=== PATIENT | male | born 1950 | race Caucasian/White ===

== ENCOUNTER 2017-01-09 13:21 | Outpatient (CLI) | payer MEDICARE, OTHER | END 2017-01-09 13:22 | disposition home or self-care (01) | DX: G47.33 Obstructive sleep apnea (adult) (pediatric) (principal) | CPT/HCPCS: 99214; G0463 ==

== ENCOUNTER 2017-02-23 09:14 | Outpatient (CLI) | payer MEDICARE, OTHER | END 2017-02-23 09:15 | disposition home or self-care (01) | LOC: SC 09:14 | PROVIDERS: ATTEND Nurse Practitioner Family | DX: G47.33 Obstructive sleep apnea (adult) (pediatric) (principal) | CPT/HCPCS: 99214; G0463; 99212 ==

== ENCOUNTER 2017-04-17 17:58 | Observation (INO) | payer MEDICARE, OTHER ==
[2017-04-17] MEDS ORDERED: ASPIRIN CHEW 81 MG TABLET PO STA (18:30)
--- NOTE | 2017-04-17 18:33 | ED Physician Documentation ---
PD HPI CHEST PAIN - Stated complaint Stated Complaint: CHEST PX/DIZZY - Chief complaint Chief Complaint: Cardiac - History obtained from History obtained from: Patient, Family (mom) - Additional information Additional information: 66yo with H/O afib and peripheral vertigo with 2 days vertigo, worse with head motion. Now 1 day intermittent Left chest pinching radiating to Left axilla and left neck. +dyspnea, +nausea. No leg pain or pedal edema. Vertigo previsouly treated successfully with Al. Review of Systems Ten Systems: 10 systems reviewed and negative Constitutional: denies: Fever, Chills Ears: denies: Loss of hearing, Ear pain Nose: denies: Rhinorrhea / runny nose, Congestion Cardiac: reports: Chest pain / pressure. denies: Palpitations, Pedal edema, Calf pain Respiratory: reports: Dyspnea. denies: Cough, Hemoptysis, Wheezing PD PAST MEDICAL HISTORY - Past Medical History Past Medical History: Yes Cardiovascular: ID, Atrial fibrillation, Other Respiratory: COPD, Sleep apnea, CPAP use Endocrine/Autoimmune: None GI: C.difficile : Benign prostate hypertrophy, Other HEENT: Other Psych: Depression Musculoskeletal: Osteoarthritis, Chronic back pain Derm: Other - Past Surgical History Past Surgical History: Yes General: Colonoscopy Ortho: Arthroscopic surgery, Other HEENT: Cataracts - Present Medications Home Medications: Ambulatory Orders Medication Instructions Recorded Confirmed Albuterol Sulfate [Ventolin Hfa] 2 puffs IH Q4H PRN 04/12/13 04/17/17 Fluticasone/Salmeterol [Advair 1 puffs IH BID 04/12/13 04/17/17 250-50 Diskus] Furosemide [Lasix] 40 mg PO DAILY 04/12/13 04/17/17 Gabapentin 800 mg PO TID 04/12/13 04/17/17 Tamsulosin [Flomax] 0.4 mg PO DAILY 04/12/13 04/17/17 Nitroglycerin [Nitrostat] 0.4 mg SL DAILY PRN 08/20/13 04/17/17 Fluticasone [Flonase] 1 spray IN BID 03/25/15 04/17/17 Omeprazole [Prilosec] 20 mg PO BID 03/25/15 04/17/17 Acetaminophen 650 mg PO TID 05/24/16 04/17/17 Aspirin [Aspirin EC] 325 mg PO DAILY 05/24/16 04/17/17 Digoxin 125 mcg PO DAILY 05/24/16 05/24/16 Montelukast [Singulair] 10 mg PO DAILY 05/24/16 04/17/17 Doxycycline Hyclate 0 mg DAILY 04/17/17 04/17/17 - Allergies Allergies/Adverse Reactions: Allergies Allergy/AdvReac Type Severity Reaction Status Date / Time epinephrine Allergy Severe chest pain Verified 04/17/17 18:06 Penicillins Allergy Severe Hives Verified 04/17/17 18:06 tramadol Allergy Severe Dizziness Verified 04/17/17 18:06 hydrocodone bitartrate * Allergy Intermediate Rash Verified 04/17/17 18:06 [From Vicodin] moxifloxacin HCl * Allergy Unknown Rash Verified 04/17/17 18:06 [From Avelox] propoxyphene napsylate * Allergy Unknown Rash Verified 04/17/17 18:06 [From Darvocet-N 100] minocycline Allergy Rash Verified 04/17/17 18:08 amlodipine besylate * AdvReac Intermediate Rash Verified 04/17/17 18:06 [From Norvasc] clarithromycin [From Biaxin] AdvReac Intermediate Rash Verified 04/17/17 18:06 Sulfa (Sulfonamide AdvReac Intermediate Hives Verified 04/17/17 18:06 Antibiotics) lisinopril AdvReac Mild affected Verified 04/17/17 18:06 kidney function dye contrast Allergy Severe Anaphylaxis Uncoded 04/28/16 14:52 iv dye Allergy Anaphylaxis Uncoded 04/17/17 18:08 perfumes/smoke AdvReac Respiratory Uncoded 04/17/17 18:08 - Social History Does the pt smoke?: No Smoking Status: Never smoker Does the pt drink ETOH?: Yes Does the pt have substance abuse?: No - Family History Family history: reports: Non contributory - Immunizations Immunizations are current?: Yes PD ED PE NORMAL - Vitals Vital signs reviewed: Yes - General General: Alert and oriented X 3, No acute distress - HEENT HEENT: PERRL, EOMI, Other (+ left nystagmus) - Neck Neck: Supple, no meningeal sign, No bony TTP - Cardiac Cardiac: RRR, No murmur - Respiratory Respiratory: No respiratory distress, Clear bilaterally - Abdomen Abdomen: Soft, Non tender - Back Back: No CVA TTP, No spinal TTP - Derm Derm: Normal color, Warm and dry - Extremities Extremities: No edema, No calf tenderness / cord - Neuro Neuro: Alert and oriented X 3, Normal speech - Psych Psych: Normal mood, Normal affect Results - Vitals Vitals: Vital Signs - 24 hr 04/17/17 04/17/17 04/17/17 18:03 19:04 20:14 Temperature 36.4 C L Heart Rate 71 62 58 L Respiratory 18 18 14 Rate Blood Pressure 178/93 H 168/86 H 168/79 H O2 Saturation 97 98 98 04/17/17 21:44 Temperature Heart Rate 63 Respiratory 15 Rate Blood Pressure 153/79 H O2 Saturation 97 Oxygen O2 Source Room air - Labs Labs: Laboratory Tests 04/17/17 04/17/17 04/17/17 18:42 18:42 18:42 WBC 8.4 RBC 4.78 Hgb 14.9 Hct 41.4 L MCV 86.7 MCH 31.1 H MCHC 35.9 RDW 13.1 Plt Count 243 MPV 7.5 Neut # 5.1 Lymph # 2.4 Divide # 0.6 Eos # 0.2 Baso # 0.1 Absolute Nucleated RBC 0.01 Nucleated RBCs 0.1 PT 11.9 INR 1.1 Sodium 137 Potassium 3.9 Chloride 101 Carbon Dioxide 27 Anion Gap 9.0 BUN 32 H Creatinine 1.4 H Estimated GFR (MDRD) 51 L Glucose 109 H Calcium 9.4 Total Bilirubin 0.4 AST 20 ALT 18 Alkaline Phosphatase 52 Total Creatine Kinase 119 CK-MB (CK-2) Troponin I Total Protein 7.4 Albumin 4.5 Globulin 2.9 Albumin/Globulin Ratio 1.6 Lipase 42 04/17/17 18:42 WBC RBC Hgb Hct MCV MCH MCHC RDW Plt Count MPV Neut # Lymph # Divide # Eos # Baso # Absolute Nucleated RBC Nucleated RBCs PT INR Sodium Potassium Chloride Carbon Dioxide Anion Gap BUN Creatinine Estimated GFR (MDRD) Glucose Calcium Total Bilirubin AST ALT Alkaline Phosphatase Total Creatine Kinase CK-MB (CK-2) 2.3 Troponin I < 0.04 Total Protein Albumin Globulin Albumin/Globulin Ratio Lipase - Rads (name of study) 1v chest Radiology: EMP read contemporaneously (normal) PD MEDICAL DECISION MAKING - ED course ED course: 66-year-old gentleman with chest pain of days duration, Somewhat atypical and initial objective workup negative but given high risk we will place in observation force formal rule out. Dr. Arenas is admitting. Departure - Departure Disposition: ED Place in Observation Clinical Impression: Atypical chest pain Condition: Good Record reviewed to determine appropriate education?: Yes
[2017-04-17] MEDS ORDERED: ASPIRIN CHEW 81 MG TABLET ONE (18:35)
[2017-04-17 18:49] LABS: BASOPHILS # (AUTO) 0.1 10^3/uL (0.0-0.1); BASOPHILS % (AUTO) 0.8 %; EOSINOPHILS # (AUTO) 0.2 10^3/uL (0.0-0.7); EOSINOPHILS % (AUTO) 2.4 %; HCT - HEMATOCRIT 41.4 % (42.0-52.0); HGB - HEMOGLOBIN 14.9 g/dL (14.0-18.0); LYMPHOCYTES # (AUTO) 2.4 10^3/uL (1.5-3.5); LYMPHOCYTES % (AUTO) 28.3 %; MEAN CORPUSCULAR HEMOGLOBIN 31.1 pg (27.0-31.0); MEAN CORPUSCULAR HGB CONC 35.9 g/dL (32.0-36.0); MEAN CORPUSCULAR VOLUME 86.7 fL (80.0-94.0); MEAN PLATELET VOLUME 7.5 fL (7.4-11.4); MONOCYTES # (AUTO) 0.6 10^3/uL (0.0-1.0); MONOCYTES % (AUTO) 7.4 %; NEUTROPHILS # (AUTO) 5.1 10^3/uL (1.5-6.6); NEUTROPHILS % (AUTO) 61.1 %; NUCLEATED RED BLOOD CELLS AUTO 0.1 /100WBC; RED BLOOD COUNT 4.78 10^6/uL (4.70-6.10); RED CELL DISTRIBUTION WIDTH 13.1 % (12.0-15.0); UNCORRECTED WHITE BLOOD COUNT 8.4 x10^3/uL; WHITE BLOOD COUNT 8.4 x10^3/uL (4.8-10.8)
[2017-04-17 18:55] LABS: INR 1.1 (0.8-1.2); PT - PROTHROMBIN TIME 11.9 secs (9.9-12.6)
[2017-04-17 19:04] LABS: ALBUMIN/GLOBULIN RATIO 1.6 (1.0-2.2); BILIRUBIN,TOTAL 0.4 mg/dL (0.2-1.0); CALCIUM 9.4 mg/dL (8.5-10.3); CREATININE 1.4 mg/dL (0.6-1.2); POTASSIUM 3.9 mmol/L (3.5-5.0); TOTAL PROTEIN 7.4 g/dL (6.7-8.2)
--- NOTE | 2017-04-17 19:07 | XRAY Preliminary Report ---
Exam: XR Chest 1 View IMPRESSION: Normal single view chest. [facility] SITE ID: [id number]
[2017-04-17 19:08] LABS: CREATINE KINASE MB 2.3 ng/mL (0.6-6.3)
--- NOTE | 2017-04-17 19:10 | XRAY Report ---
EXAM: CHEST RADIOGRAPHY EXAM DATE: 04/17/2017 06:54 PM. CLINICAL HISTORY: Chest pain. COMPARISON: 05/24/2016. TECHNIQUE: 1 view. FINDINGS: Lungs/Pleura: No focal opacities evident. No pleural effusion. No pneumothorax. Mediastinum: Within exam limitations, cardiomediastinal contour is normal. Other: None. IMPRESSION: Normal single view chest. [facility] Referring Provider Line: [phone] SITE ID: [id number]
[2017-04-17 19:11] LABS: TROPONIN I < 0.04 ng/mL (<0.49)
[2017-04-17] MEDS ORDERED: NITROGLYCERIN 2% PASTE TOP STA (19:53)
[2017-04-17] MEDS ORDERED: NITROGLYCERIN 2% PASTE TOP ONE (20:08)
[2017-04-17] MEDS ORDERED: PROCHLORPERAZINE 10 MG/2 ML VIAL IVP PRN (21:02)
[2017-04-17] MEDS ORDERED: ONDANSETRON 4 MG/2 ML VIAL IVP PRN (21:02)
[2017-04-17] MEDS ORDERED: ACETAMINOPHEN 325 MG TABLET PO PRN (21:02)
[2017-04-17] MEDS ORDERED: ONDANSETRON ODT 4 MG TABLET TL PRN (21:02)
[2017-04-17] MEDS ORDERED: NITROGLYCERIN SL 0.4 MG TABLET SL PRN (21:02)
[2017-04-17] MEDS ORDERED: HYDROcod/ACETAM 5/325 MG TABLET PO PRN (21:02)
[2017-04-17] MEDS ORDERED: SODIUM CHLORIDE FLUSH 0.9% 10 ML SYRINGE IVP PRN (21:02)
[2017-04-17] MEDS: SODIUM CHLORIDE FLUSH 0.9% 10 ML SYRINGE IVP SCH (23:30)
[2017-04-18] MEDS: SODIUM CHLORIDE FLUSH 0.9% 10 ML SYRINGE IVP SCH (06:12)
[2017-04-18] MEDS ORDERED: SODIUM CHLORIDE 0.9% 1,000 ML IV SCH (08:00)
[2017-04-18] MEDS ORDERED: ALBUTEROL NEB 2.5 MG/3 ML INH PRN (08:10)
[2017-04-18] MEDS ORDERED: FLUTICASONE NASAL SPRAY NAS SCH (09:00)
[2017-04-18] MEDS ORDERED: POLYETHYLENE GLYCOL 3350 17 GM PACKET PO SCH (09:00)
[2017-04-18] MEDS ORDERED: GABAPENTIN 400 MG CAPSULE PO SCH (09:00)
[2017-04-18] MEDS ORDERED: MONTELUKAST 10 MG TABLET PO SCH (09:00)
[2017-04-18] MEDS ORDERED: ASPIRIN CHEW 81 MG TABLET PO SCH (09:00)
[2017-04-18] MEDS ORDERED: TAMSULOSIN 0.4 MG CAPSULE PO SCH (09:00)
[2017-04-18] MEDS ORDERED: ASPIRIN EC 325 MG TABLET PO SCH (09:00)
[2017-04-18] MEDS ORDERED: FORMOTEROL FUMARATE NEB 20 MCG/2 ML INH SCH (09:30)
[2017-04-18] MEDS ORDERED: BUDESONIDE 0.5 MG/2 ML NEB INH SCH (09:30)
--- NOTE | 2017-04-18 11:28 | Discharge Plan ---
Discharge Plan Disposition: 01 Home, Self Care Condition: Stable Diet: Regular Activity Restrictions: No Restrictions Shower Restrictions: No Driving Restrictions: No Weight Bearing: Full Weight Additional Instructions or Follow Up instructions: may follow up PCP and formal service waiter in one week Follow-Up Care: [facility] - Cardiac No Smoking: If you smoke, Please STOP! Call for help. Follow-up with: Nain Cobos MD [Primary Care Provider] -
[2017-04-18 13:03] VITALS: BP 145/81
--- NOTE | 2017-04-18 17:17 | HISTORY & PHYSICAL EXAMINATION ---
DATE OF ADMISSION: 04/17/2017 PRIMARY CARE PROVIDER: Jovani Cobos MD. ADMITTING PROVIDER: Nadira Arenas MD. CHIEF COMPLAINT: Chest pain. This is a alejandro gentleman who has a documented history of a myocardial infarction in 1994. At that t gabbi [place] was [place] [employer] [place] to [place] the [employer] (the last time they were ever at [facility]) when he started having chest pain. The pain was substernal, rad iated up into the jaw, went down both arms and felt like there was a vice around both forearms. He wa s nauseated, short of breath. He came to our emergency room and admitted overnight and later the next day transferred to [place]. 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 Without access to that medical record I do not know what he is describing. He is followed by Dr. Austen Choe from [facility], cardiology. He has had intermittent chest pain since 1994. He had a s tress test 3 years ago, and 1-1/2 years ago had an echocardiogram. No clear etiology of his chest leni n. When I ask him if it is esophageal, coronary artery spasm, anxiety, pleuritic, he says that "no on e really knows." But he gets chest pain often enough that he "lives with it." Starting on Monday (2 days ago), he started having the chest pain again. It is substernal, radiates up the left neck, as well as the left jaw. The sharpness up the left neck is quite intense. It radia diana down the left arm, and it is associated with vertigo. When he got up on Monday morning he did h ave a brief episode of atrial fibrillation for about a minute, but no chest pain then. He walked up [facility] to [facility], and had done well all day long until 4 p.m. when this episode of chest leni n, vertigo started. He has longstanding vertigo and has been seen by multiple, multiple specialists i n the past. Most recently he has been evaluated by Dr. Wright and Al maneuver has helped his verti go tremendously. At first the episodes were happening for only 10 to 20 seconds at a time. Then they started happening for 2 to 3 minutes at a time. This was between Monday and Monday. He almost came in Monday. Today, he finally decided that maybe he was ignoring something that is possibly life threatening and he cam e to the emergency room. In the emergency room he was evaluated by Dr. Bess and he is afebrile, mil dly hypertensive in the 160s to 170s systolic. Oxygenating well on room air in no acute distress. He has chronic kidney disease on labs and a troponin of less than 0.04. EKG has not been scanned into [facility] EMR and I do not have access to it right now, but Dr. Bess verbally reports EKG is unchanged. Of note in the EMR he does have an echocardiogram from May 2016. He has a normal ejection fraction of 70% and impaired relaxation consistent with grade 1 diastolic dysfunction. The aortic root is mildly dilated measuring up to 4.2 cm. Right ventricle is normal. No significant valvular heart disease. Mo derate increased left atrial volume index. Severe right atrial enlargement. No elevated pulmonary pre ssures. As such, the patient is now placed in observation for rule out myocardial infarction. I have discusse d the case with Dr. Massey, cardiology vice president for instruction for Dr. Calvillo, and she feels that it is appropriate for the patient to be placed in observation in this facility and does not necessarily need to be eval uated at their facility. PAST MEDICAL HISTORY: 1. Coronary artery disease as above. 2. Chronic lumbar pain secondary to osteoarthritis and stenosis. 3. Hyperglycemia, not at cut-off for diabetes. 4. Obstructive sleep apnea on CPAP since 2004. 5. Chronic obstructive pulmonary disease. 6. Partial right nephrectomy 2002 for renal cell cancer at [facility]. 7. Prostate cancer 2003, status post seed implants. 8. Severe vertigo for over 15 years. History as above and seen by multiple specialists from [facility] to [facility] to [place]. Most recently Dr. Wright, ENT, in [place] saw him and Al robert has worked. 9. Allergy history with multiple sinus infections. Complications include orbital sinus infection. He has had 3 sinus surgeries and orbital abscess surgery. Most recently he started undergoing allergy sh ots and they seem to be working. 10. Right leg venous stripping 39 years ago. 11. Bilateral cataract surgery. 12. C. Difficile colitis with admission June 2014 associated with an episode of sinusitis. 13. Diverticulosis on routine screening colonoscopies. ALLERGIES: 1. EPINEPHRINE CAUSING CHEST PAIN. 2. PENICILLIN CAUSES HIVES. 3. TRAMADOL CAUSES DIZZINESS. 4. VICODIN CAUSES A RASH. 5. MOXIFLOXACIN CAUSES A RASH. 6. DARVOCET CAUSES A RASH. 7. MINOCYCLINE CAUSES A RASH. 8. AMLODIPINE CAUSES A RASH. 9. CLARITHROMYCIN CAUSES RASH. 10. SULFA CAUSES HIVES. HE DOES NOT WANT TO DO DYE CONTRAST BECAUSE IT CAN EFFECT HIS KIDNEYS AND GIVE HIM ANAPHYLAXIS. PERFU MES AND SMOKE CAUSE HIM TO WHEEZE. MEDICATIONS: 1. Flomax 0.4 daily. 2. Prilosec 20 b.i.d. 3. Sublingual nitroglycerin p.r.n. 4. Singulair 10 daily. 5. Gabapentin 800 mg t.i.d. 6. Lasix 40 daily. 7. Advair 250/50 b.i.d. 8. Flonase 1 spray each nostril b.i.d. 9. Doxycycline daily. 10. Digoxin 0.125 daily. 11. Aspirin 325 daily. 12. Albuterol 2 puffs every 4 hours as needed. 13. Acetaminophen 650 p.o. t.i.d. SOCIAL HISTORY: He never smoked, but he was around a lot of secondhand smoke with his stepfather and the business world. He drinks sporadically. He may have a beer once or twice a month, go months witho ut alcohol. But because of his back pain he will pour 2 ounces of scotch into a 4-ounce glass with lo ts of ice 2 or 3 times a year and sip it before bedtime just to get himself to relax and release some of the back spasms to sleep comfortably. He is retired from previously working in the [employer] industry. He was born in [place], but raised here on [facility] and is marri ed to his first of 40 years come July. They live in their own home and he still lives [facility]. FAMILY HISTORY: father is unknown. His mom had diabetes, a blue leg for which she of from peripheral vascular disease, TIA, chronic kidney failure on dialysis. The patient's brother at a ge 59 from lung cancer and alcohol abuse. His 2 children are healthy. REVIEW OF SYSTEMS: He has had no unexpected weight changes, sweats, fevers, fatigue. ENT: Always with allergy problems, always. That is why he is seeing an etcher electrolytic. Vertigo as above. PULMONARY: Wheezing, coughing associated with bronchitis and infection, more frequently than not. No recent change in that status. CARDIAC: As above. GI: Stools are getting more soft than usual, but there is no diarrhea, no blood. No abdominal pain. : Prostate cancer treatment has left him with a little bit of urgency and occasional dribbling, but otherwise stable. No urgency, frequency, dysuria, flank pain. No hematuria. JOINTS: Back is his main limiting pain syndrome. He has osteoarthritic stiffness in his major joints in the morning, but no effusions, no swelling. SKIN: No new lesions. No new moles. No rashes. PSYCH: Anxiety could be problematic. He does not think anxiety is the cause of his chest pain. No jay or depressive disorder. No hallucinations. 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 He is starting to forget names with regards to memory. No focal neurolo gic deficit. PHYSICAL EXAMINATION: On examination he is seen in the emergency room after being treated with sublin gual nitroglycerin and aspirin in the emergency room. He states he is still having brief episodes of sharp chest pain radiating to his jaw and underneath his scapula, but he is otherwise comfortable in no acute distress. VITAL SIGNS: Temperature is 36.4, pulse 58, blood pressure 168/79, respirations 14, 98% on room air. He is a stalk, middle aged white male who looks stated age. HEAD AND NECK: Has bilateral arcus senilis, pretty pronounced. Sclerae nonicteric. Spontaneous tearin g of eyes with tears running down his face that he said is from allergies. A mild nasal tone of voice . Tongue midline. Gag intact. Speech normal. Neck is supple with shotty adenopathy. No goiter or brui t. LUNGS: Clear without crackles, rhonchi, wheezing. No increased respiratory effort to talk to me. CARDIAC: PMI normally placed with a regular rate and rhythm, and a systolic murmur loudest at the lef t lower sternal border. He does not have a right ventricular lift. ABDOMEN: Obese, soft, nontender, no organomegaly. Normal bowel sounds. No masses. He has a left ingui nal hernia that contains fat on CT in the past. EXTREMITIES: Warm, without clubbing, cyanosis, or edema with mild superficial varicosities on the rig ht leg. NEUROLOGIC: He is alert and oriented to person, place, and time. Follows 2-step commands, has no foca l deficits, no tremors. CMP shows a BUN of 32, creatinine 1.4 with a GFR of 51. This is stable for him. Random glucose 109. G lycosylated hemoglobin 6.5% August 2016. Troponin less than 0.04. In review of the EMR he does have hyperlipidemia with a cholesterol of 214, triglycerides 499, HDL 30, LDL not reportable because of t he high triglycerides back in May 2016. White cell count is 8.4, hemoglobin 14.9, MCV normal, plat elets 243. ASSESSMENT AND PLAN: 1. Chest pain typical of his angina. However, it has been 48 hours and he has not even bumped his tro ponin's even slightly. He will be placed in observation for serial cardiac enzymes. Anticipate discha rge after 12 to 14 hours. I have asked him to follow up with his [employer] senior specialist in the next week. Dr. Kris berrios says she will discuss the case with Dr. Calvillo or leave a note for him. He is followed assiduo usly by his [employer] senior specialist and is already getting close followup care. The etiology of his chest pain i s unclear to me. Possible vasospasm, but again no troponin bump after 2 days of intense angina. 2. Diabetes mellitus, diet controlled. Recommend to the patient that he lose 10% of his body weight, increase physical activity with regular walking. 3. Hypertension not at goal. I do not know if this is new for him or associated with anxiety being in the hospital. Never the less, would strongly consider adding low dose lisinopril to his regime and l etting his [employer] senior specialist decide if he can stay off of it or not in the outpatient setting. 4. Allergy history. Resume his usual medicines. Currently stable other than the coryza. 5. Chronic obstructive pulmonary disease currently stable, compensated. No change in treatment needed . 6. Obstructive sleep apnea. is going home to bring in his sleep mask and that will be ordered he re. 7. DVT prophylaxis will be DESMOND guillory. 8. FULL CODE STATUS. JOB #: [id number] EXT JOB #:[id number]
--- NOTE | 2017-04-20 17:15 | DISCHARGE SUMMARY ---
DATE OF ADMISSION: 04/17/2017 DATE OF DISCHARGE: 04/18/2017 DISCHARGE DIAGNOSES: 1. Atopic chest pain. 2. Hypertension. 3. Asthma. CHIEF COMPLAINT: Left anterior chest pain radiating to the left shoulder and left arm. HISTORY OF PRESENT ILLNESS: The patient comes here complaining of chest pain that is anterior of the left and patient also reports the pain radiating to the left shoulder and left top arm. The patient's chest pain began yesterday morning, then the chest pain stopped. The patient took a nitro and chest pain got better and chest pain came back again and this time before patient came to the emergency inocencio m chest pain lasted more than 10 minutes. After the patient given nitro the patient felt better. The patient continued tests for the troponin 3 times, all negative. EKG unchanged from previous unremarka ble. Chest x-ray normal single view of chest x-ray. No effusion, no pneumothorax. The patient's CBC is unremarkable. CMP, the patient had chronic elevated creatinine, also BUN. At thi s time patient's creatinine 1.4, BUN 32, by patient report this is his baseline. HOME MEDICATIONS: 1. Flomax 0.4 mg p.o. daily. 2. Nitroglycerin 0.4 mg p.r.n. for chest pain. 3. Singulair 10 mg p.o. daily. 4. Gabapentin 800 p.o. t.i.d. 5. Lasix 40 mg p.o. daily. 6. Advair 250/50, 1 puff INH b.i.d. 7. Flonase 1 spray INH b.i.d. 8. Aspirin 325 mg p.o. daily. 9. Albuterol 2 puffs INH q. 4 p.r.n. 10. Tylenol 650 mg p.o. t.i.d. for pain. 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 JOB #: [id number] EXT JOB #:[id number]
== END 2017-04-18 14:26 | disposition home or self-care (01) ==
LOC: ED 17:58 → MS 21:02
PROVIDERS: ADMIT Specialist; ATTEND Nurse Practitioner Gerontology
DX: R07.89 Other chest pain (principal); I10 Essential (primary) hypertension; M79.622 Pain in left upper arm; J45.909 Unspecified asthma, uncomplicated; E11.9 Type 2 diabetes mellitus without complications; Z91.09 Other allergy status, other than to drugs and biological substances; J44.9 Chronic obstructive pulmonary disease, unspecified; G47.33 Obstructive sleep apnea (adult) (pediatric); I25.10 Atherosclerotic heart disease of native coronary artery without angina pectoris; G89.29 Other chronic pain; M47.896 Other spondylosis, lumbar region; M48.06 Spinal stenosis, lumbar region; Z85.46 Personal history of malignant neoplasm of prostate; Z85.528 Personal history of other malignant neoplasm of kidney; Z90.5 Acquired absence of kidney; Z86.79 Personal history of other diseases of the circulatory system; X58.XXXS Exposure to other specified factors, sequela
CPT/HCPCS: 36415; 71010; 80053; 80162; 82550; 82553; 83690; 84484; 85025; 85610; 93005; 99284; 99285; A9270; G0378

== ENCOUNTER 2017-04-21 13:12 | Outpatient (CLI) | payer MEDICARE, OTHER | END 2017-04-21 13:13 | disposition critical access hospital (66) | LOC: EMS 13:12 | PROVIDERS: ATTEND Surgery | DX: M54.5 Low back pain (principal); M25.512 Pain in left shoulder; V49.50XA Passenger injured in collision with unspecified motor vehicles in traffic accident, initial encounter; Y92.413 State road as the place of occurrence of the external cause | CPT/HCPCS: A0425; A0429 ==

== ENCOUNTER 2017-04-21 13:57 | Emergency (ER) | payer OTHER, MEDICARE ==
[2017-04-21 14:16] VITALS: BP 167/89
[2017-04-21] MEDS ORDERED: ACETAMINOPHEN 500 MG TABLET PO STA (15:13)
--- NOTE | 2017-04-21 16:00 | XRAY Preliminary Report ---
Exam: XR Lumbar Spine 2 View IMPRESSION: 1. No definite radiographic evidence of acute bony lumbar spinal injury. 2. Multilevel disk space narrowing and osteophytosis. 3. L4-L5 facet arthropathy. [facility] SITE ID: [id number]
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
== END 2017-04-21 16:48 | disposition home or self-care (01) ==
LOC: EDUNIT# → EDBD → ED 13:57
DX: S70.02XA Contusion of left hip, initial encounter (principal); S40.012A Contusion of left shoulder, initial encounter; S39.012A Strain of muscle, fascia and tendon of lower back, initial encounter; V49.50XA Passenger injured in collision with unspecified motor vehicles in traffic accident, initial encounter; I25.2 Old myocardial infarction; Z79.82 Long term (current) use of aspirin; Z86.718 Personal history of other venous thrombosis and embolism; Z90.5 Acquired absence of kidney; Z85.528 Personal history of other malignant neoplasm of kidney
CPT/HCPCS: 72100; 99283

== ENCOUNTER 2017-08-31 10:24 | Outpatient (CLI) | payer MEDICARE, OTHER | END 2017-08-31 10:25 | disposition home or self-care (01) | LOC: RT 10:24 | PROVIDERS: ATTEND Orthopaedic Surgery | DX: Z01.810 Encounter for preprocedural cardiovascular examination (principal); S83.242A Other tear of medial meniscus, current injury, left knee, initial encounter | CPT/HCPCS: 93005 ==

== ENCOUNTER 2017-10-03 08:00 | Outpatient (CLI) | payer MEDICARE, OTHER ==
[2017-10-03 13:08] LABS: BASOPHILS # (AUTO) 0.1 10^3/uL (0.0-0.1); BASOPHILS % (AUTO) 0.8 %; EOSINOPHILS # (AUTO) 0.2 10^3/uL (0.0-0.7); EOSINOPHILS % (AUTO) 3.5 %; HGB - HEMOGLOBIN 13.9 g/dL (14.0-18.0); LYMPHOCYTES # (AUTO) 1.9 10^3/uL (1.5-3.5); LYMPHOCYTES % (AUTO) 27.3 %; MEAN CORPUSCULAR HEMOGLOBIN 29.8 pg (27.0-31.0); MEAN CORPUSCULAR HGB CONC 34.4 g/dL (32.0-36.0); MEAN CORPUSCULAR VOLUME 86.6 fL (80.0-94.0); MEAN PLATELET VOLUME 8.2 fL (7.4-11.4); MONOCYTES # (AUTO) 0.5 10^3/uL (0.0-1.0); NEUTROPHILS # (AUTO) 4.2 10^3/uL (1.5-6.6); NEUTROPHILS % (AUTO) 61.4 %; PLT - PLATELET COUNT 218 10^3/uL (130-450); RED BLOOD COUNT 4.65 10^6/uL (4.70-6.10); RED CELL DISTRIBUTION WIDTH 13.1 % (12.0-15.0); WHITE BLOOD COUNT 6.8 x10^3/uL (4.8-10.8)
[2017-10-03 13:40] LABS: ALBUMIN 4.3 g/dL (3.2-5.5); ALBUMIN/GLOBULIN RATIO 1.4 (1.0-2.2); ALKALINE PHOSPHATASE 43 IU/L (42-121); ALT ALANINE AMINOTRANSFERASE 13 IU/L (10-60); AST ASPARTATE AMINOTRANSFERASE 19 IU/L (10-42); BUN - BLOOD UREA NITROGEN 29 mg/dL (6-20); CALCIUM 9.4 mg/dL (8.5-10.3); CARBON DIOXIDE - CO2 27 mmol/L (21-32); CHLORIDE 100 mmol/L (101-111); CHOLESTEROL 238 mg/dL; CREATININE 1.3 mg/dL (0.6-1.2); GFR - MDRD 55 (>89); GLUCOSE 130 mg/dL (70-100); HDL CHOLESTEROL 34 mg/dL; SODIUM 136 mmol/L (135-145); TOTAL PROTEIN 7.3 g/dL (6.7-8.2)
[2017-10-03 14:03] LABS: LDL CHOLESTEROL,DIRECT 117 mg/dL; LDLD/HDL RATIO 3.4 (<3.6)
[2017-10-03 14:09] LABS: HB2 TOTAL 14.6 g/dL; HEMOGLOBIN A1C 0.68 g/dL; HEMOGLOBIN A1C % 6.4 % (4.6-6.2)
== END 2017-10-03 08:01 | disposition home or self-care (01) ==
LOC: LAB.WCP 08:00
PROVIDERS: ATTEND Family Medicine
DX: I10 Essential (primary) hypertension (principal); E78.9 Disorder of lipoprotein metabolism, unspecified; R73.09 Other abnormal glucose
CPT/HCPCS: 36415; 80053; 80061; 83036; 85025

== ENCOUNTER 2017-12-19 18:42 | Outpatient (CLI) | payer MEDICARE, OTHER | END 2017-12-19 18:43 | disposition short-term general hospital (02) | LOC: EMS 18:42 | PROVIDERS: ATTEND Surgery | DX: R07.9 Chest pain, unspecified (principal); R20.0 Anesthesia of skin; R11.0 Nausea; R06.02 Shortness of breath | CPT/HCPCS: A0425; A0427 ==

== ENCOUNTER 2018-07-10 07:58 | Outpatient (CLI) | payer MEDICARE, OTHER ==
[2018-07-10 12:43] LABS: ALBUMIN 4.4 g/dL (3.2-5.5); ALBUMIN/GLOBULIN RATIO 1.5 (1.0-2.2); BILIRUBIN,TOTAL 1.2 mg/dL (0.2-1.0); CALCIUM 9.4 mg/dL (8.5-10.3); CREATININE 1.7 mg/dL (0.6-1.2); TOTAL PROTEIN 7.3 g/dL (6.7-8.2)
[2018-07-10 12:52] LABS: HB2 TOTAL 15.2 g/dL; HEMOGLOBIN A1C 0.67 g/dL; HEMOGLOBIN A1C % 6.2 % (4.6-6.2)
[2018-07-10 12:59] LABS: BASOPHILS % (AUTO) 0.7 %; EOSINOPHILS # (AUTO) 0.2 10^3/uL (0.0-0.7); EOSINOPHILS % (AUTO) 2.5 %; HGB - HEMOGLOBIN 14.1 g/dL (14.0-18.0); LYMPHOCYTES % (AUTO) 27.5 %; MEAN CORPUSCULAR HEMOGLOBIN 30.5 pg (27.0-31.0); MEAN CORPUSCULAR HGB CONC 34.1 g/dL (32.0-36.0); MEAN CORPUSCULAR VOLUME 89.4 fL (80.0-94.0); MONOCYTES # (AUTO) 0.5 10^3/uL (0.0-1.0); MONOCYTES % (AUTO) 7.2 %; NEUTROPHILS # (AUTO) 4.5 10^3/uL (1.5-6.6); NEUTROPHILS % (AUTO) 62.1 %; PLT - PLATELET COUNT 229 10^3/uL (130-450); RED BLOOD COUNT 4.61 10^6/uL (4.70-6.10); RED CELL DISTRIBUTION WIDTH 12.9 % (12.0-15.0); WHITE BLOOD COUNT 7.2 x10^3/uL (4.8-10.8)
== END 2018-07-10 07:59 ==
LOC: LAB.WCP 07:58
PROVIDERS: ATTEND Family Medicine
DX: E78.5 Hyperlipidemia, unspecified (principal); R73.09 Other abnormal glucose; C61 Malignant neoplasm of prostate
CPT/HCPCS: 36415; 80053; 83036; 84153; 85025

== ENCOUNTER 2018-08-14 18:40 | Outpatient (CLI) | payer MEDICARE, OTHER ==
--- NOTE | 2018-08-14 21:13 | Ultrasound Report ---
Reason: LYMPHEDEMA,RIGHT ARM,LYMPHEDEMA LEFT ARM Procedure Date: 08/14/2018 Accession Number: [id number] / [id number] Procedure: US - Duplex Ext Veins Bilateral CPT Code: FULL RESULT: EXAM: BILATERAL UPPER EXTREMITY VENOUS ULTRASOUND EXAM DATE: 08/14/2018 07:57 PM. CLINICAL HISTORY: Bilateral upper extremity lymphedema. History of left subclavian thrombus, renal cancer, and prostate cancer. COMPARISON: None. TECHNIQUE: Real-time sonographic vascular imaging was performed by the pole lift operator through the upper extremities utilizing both color-flow and Doppler spectral analysis. Multiple insurance sales representative static images were saved for review. FINDINGS: Right: Internal Jugular Vein (IJV): Normal. Subclavian Vein (SCV): Normal. Axillary Vein: Normal. Cephalic Vein (superficial vein): Normal. Basilic Vein (superficial vein): Normal. Brachial Vein: Normal. Left: Internal Jugular Vein (IJV): Normal. Subclavian Vein (SCV): Normal. Axillary Vein: Normal. Cephalic Vein (superficial vein): Normal. Basilic Vein (superficial vein): Normal. Brachial Vein: Normal. Other: None. IMPRESSION: No evidence for deep vein thrombosis. RADIA The above findings were discussed with Michelle Silverman by Dr. Edna Arceo at 21:12 hrs on 08/14/18.
== END 2018-08-14 18:41 | disposition home or self-care (01) ==
LOC: DI 18:40
PROVIDERS: ATTEND Physician Assistant
DX: I89.0 Lymphedema, not elsewhere classified (principal)
CPT/HCPCS: 93970

== ENCOUNTER 2018-09-04 08:21 | Outpatient (CLI) | payer MEDICARE, OTHER ==
[2018-09-04 12:37] LABS: HGB - HEMOGLOBIN 13.8 g/dL (14.0-18.0); MEAN CORPUSCULAR HEMOGLOBIN 30.8 pg (27.0-31.0); MEAN CORPUSCULAR HGB CONC 34.3 g/dL (32.0-36.0); MEAN CORPUSCULAR VOLUME 89.6 fL (80.0-94.0); RED BLOOD COUNT 4.48 10^6/uL (4.70-6.10); RED CELL DISTRIBUTION WIDTH 12.9 % (12.0-15.0); WHITE BLOOD COUNT 7.5 x10^3/uL (4.8-10.8)
[2018-09-04 12:48] LABS: CALCIUM 9.4 mg/dL (8.5-10.3); CREATININE 1.6 mg/dL (0.6-1.2)
[2018-09-04 13:05] LABS: CREATININE,URINE 116.4 mg/dL; PROTEIN/CREATININE RATIO,URINE 0.1 (<=0.2)
== END 2018-09-04 23:59 | disposition home or self-care (01) ==
LOC: LAB.WCP 08:21
PROVIDERS: ATTEND Internal Medicine Nephrology
DX: D70.9 Neutropenia, unspecified (principal); N05.9 Unspecified nephritic syndrome with unspecified morphologic changes; D63.1 Anemia in chronic kidney disease; R80.9 Proteinuria, unspecified
CPT/HCPCS: 36415; 80048; 82570; 84156; 85027

== ENCOUNTER 2019-06-04 08:00 | Outpatient (CLI) | payer MEDICARE, OTHER ==
[2019-06-04 12:53] LABS: ALBUMIN 4.2 g/dL (3.2-5.5); ALBUMIN/GLOBULIN RATIO 1.2 (1.0-2.2); BILIRUBIN,TOTAL 1.1 mg/dL (0.2-1.0); CALCIUM 9.5 mg/dL (8.5-10.3); CREATININE 1.8 mg/dL (0.6-1.2); TOTAL PROTEIN 7.6 g/dL (6.7-8.2)
[2019-06-04 14:51] LABS: HB2 TOTAL 14.1 g/dL; HEMOGLOBIN A1C 0.64 g/dL; HEMOGLOBIN A1C % 6.3 % (4.6-6.2)
== END 2019-06-04 23:59 | disposition home or self-care (01) ==
LOC: LAB.WCP 08:00
PROVIDERS: ATTEND Family Medicine
DX: I12.9 Hypertensive chronic kidney disease with stage 1 through stage 4 chronic kidney disease, or unspecified chronic kidney disease (principal); E11.22 Type 2 diabetes mellitus with diabetic chronic kidney disease; N18.3 Chronic kidney disease, stage 3 (moderate); I48.0 Paroxysmal atrial fibrillation
CPT/HCPCS: 36415; 80053; 82043; 83036

== ENCOUNTER 2019-08-13 11:22 | Outpatient (CLI) | payer MEDICARE, OTHER | END 2019-08-13 11:23 | disposition critical access hospital (66) | LOC: EMS 11:22 | PROVIDERS: ATTEND Surgery | DX: R06.00 Dyspnea, unspecified (principal); R07.89 Other chest pain; R42 Dizziness and giddiness | CPT/HCPCS: A0425; A0427 ==

== ENCOUNTER 2019-08-28 09:00 | Outpatient (CLI) | payer MEDICARE, OTHER ==
[2019-08-28 13:30] LABS: ALBUMIN/GLOBULIN RATIO 1.3 (1.0-2.2); ALKALINE PHOSPHATASE 54 IU/L (42-121); ALT ALANINE AMINOTRANSFERASE 12 IU/L (10-60); AST ASPARTATE AMINOTRANSFERASE 16 IU/L (10-42); BUN - BLOOD UREA NITROGEN 31 mg/dL (6-20); CALCIUM 9.2 mg/dL (8.5-10.3); CARBON DIOXIDE - CO2 27 mmol/L (21-32); CHLORIDE 101 mmol/L (101-111); CHOL/HDL RATIO 6.3 (<5.0); CHOLESTEROL 221 mg/dL; CREATININE 1.7 mg/dL (0.6-1.2); GFR - MDRD 40 (>89); GLUCOSE 142 mg/dL (70-100); HDL CHOLESTEROL 35 mg/dL; LDL CHOLESTEROL,CALCULATED 124 mg/dL; LDL/HDL RATIO 3.5 (<3.6); SODIUM 137 mmol/L (135-145); TOTAL PROTEIN 7.2 g/dL (6.7-8.2); VLDL CHOLESTEROL 62 mg/dL
[2019-08-28 14:30] LABS: HB2 TOTAL 12.6 g/dL; HEMOGLOBIN A1C 0.61 g/dL; HEMOGLOBIN A1C % 6.6 % (4.6-6.2)
[2019-08-28 19:00] LABS: CREATININE,URINE 59.5 mg/dL; MICROALBUM/CREATININE RATIO,UR 55.5 ug/mg (<30.0); MICROALBUMIN,URINE 3.3 mg/dL (0-300.0)
== END 2019-08-28 23:59 | disposition home or self-care (01) ==
LOC: LAB.WCP 09:00
PROVIDERS: ATTEND Family Medicine
DX: I89.0 Lymphedema, not elsewhere classified (principal); I12.9 Hypertensive chronic kidney disease with stage 1 through stage 4 chronic kidney disease, or unspecified chronic kidney disease; N18.3 Chronic kidney disease, stage 3 (moderate); R73.03 Prediabetes; E78.5 Hyperlipidemia, unspecified
CPT/HCPCS: 36415; 80053; 80061; 82043; 82570; 83036; 83721

== ENCOUNTER 2019-11-16 14:21 | Outpatient (CLI) | payer MEDICARE, OTHER ==
--- NOTE | 2019-11-17 18:51 | Ultrasound Report ---
Reason: CHRONIC KIDNEY DISEASE STAGE 3 Procedure Date: 11/16/2019 Accession Number: [id number] / [id number] Procedure: US - Retroperitoneal CPT Code: Final Report FULL RESULT: EXAM: RENAL ULTRASOUND EXAM DATE: 11/16/2019 02:22 PM. CLINICAL HISTORY: Chronic kidney disease stage 3. COMPARISON: RETROPERITONEAL US 12/14/2011 5:26 PM. TECHNIQUE: Real-time scanning was performed with static images obtained. FINDINGS: Right Kidney: 11.0 x 6.7 x 5.4 cm. Normal echotexture with no stones, contour-deforming masses, or hydronephrosis. Superior pole cyst is 2.4 x 1.5 x 2.3 cm, benign imaging features. Left Kidney: 13.3 x 6.0 x 4.6 cm. Normal echotexture with no stones, contour-deforming masses, or hydronephrosis. Anterolateral cyst is 0.8 x 0.4 x 0.8 cm, also with benign imaging features. Bladder: Bilateral jets seen. The prevoid bladder volume was 200 cc. The postvoid bladder volume was 122 cc. Other: None. IMPRESSION: No stone, mass, or hydronephrosis. Postvoid residual volume of 122 mL. RADIA
== END 2019-11-16 14:22 | disposition home or self-care (01) ==
LOC: DI 14:21
PROVIDERS: ATTEND Internal Medicine Nephrology
DX: N18.3 Chronic kidney disease, stage 3 (moderate) (principal)
CPT/HCPCS: 76770

== ENCOUNTER 2020-02-18 08:00 | Outpatient (CLI) | payer MEDICARE, OTHER ==
--- NOTE | 2020-02-19 10:49 | XRAY Report ---
Reason: LEFT FOOT PAIN Procedure Date: 02/18/2020 Accession Number: [id number] / [id number] Procedure: WCP - Foot 3 View LT CPT Code: Final Report FULL RESULT: EXAM: LEFT FOOT RADIOGRAPHY 3 VIEWS EXAM DATE: 02/18/2020. CLINICAL HISTORY: Left foot pain. COMPARISON: None. TECHNIQUE: AP, oblique and lateral views. FINDINGS: Bones: No fracture or other acute osseous abnormality. 8 mm enthesophyte at the insertion of the Achilles tendon. Joints: No dislocation. Mild narrowing and spurring of the first metatarsal-phalangeal joint. Soft Tissues: Normal. No soft tissue swelling. IMPRESSION: Mild degenerative joint disease of the first metatarsal-phalangeal joint. Enthesopathy at the insertion of the Achilles tendon on the posterior calcaneus. No acute abnormality. RADIA
--- NOTE | 2020-02-19 10:53 | XRAY Report ---
Reason: LEFT ANKLE PAIN Procedure Date: 02/18/2020 Accession Number: [id number] / [id number] Procedure: WCP - Ankle 3 View LT CPT Code: Final Report FULL RESULT: EXAM: LEFT ANKLE RADIOGRAPHY 3 VIEWS EXAM DATE: 02/18/2020. CLINICAL HISTORY: Left ankle pain. COMPARISON: None. TECHNIQUE: AP, oblique and lateral views. FINDINGS: Bones: No fracture or other acute osseous abnormality. 8 mm enthesophyte at the insertion of the Achilles tendon on the calcaneus. 3 mm posterior plantar calcaneal spur. Joints: No subluxation or arthritic changes. Soft Tissues: Diffuse swelling around the lower leg and ankle. IMPRESSION: No acute bone or joint abnormality. Mild enthesopathy at the insertion of the Achilles tendon on the posterior calcaneus. 3 mm posterior plantar calcaneal spur. Diffuse nonspecific soft tissue swelling of the lower leg and ankle. RADIA
== END 2020-02-18 23:59 | disposition home or self-care (01) ==
LOC: DI.WCP 08:00
PROVIDERS: ATTEND Physician Assistant Medical
DX: M19.072 Primary osteoarthritis, left ankle and foot (principal); M77.32 Calcaneal spur, left foot; R22.42 Localized swelling, mass and lump, left lower limb

== ENCOUNTER 2020-02-27 07:00 | Outpatient (CLI) | payer MEDICARE, OTHER ==
[2020-02-27 13:44] LABS: CREATININE 1.5 mg/dL (0.6-1.2)
[2020-02-27 14:09] LABS: CREATININE,URINE 33.8 mg/dL; MICROALBUMIN,URINE 2.3 mg/dL (0-300.0)
[2020-02-27 14:37] LABS: HB2 TOTAL 13.5 g/dL; HEMOGLOBIN A1C 0.68 g/dL; HEMOGLOBIN A1C % 6.8 % (4.6-6.2)
== END 2020-02-27 23:59 | disposition home or self-care (01) ==
LOC: LAB.WCP 07:00
PROVIDERS: ATTEND Family Medicine
DX: R73.09 Other abnormal glucose (principal); I12.9 Hypertensive chronic kidney disease with stage 1 through stage 4 chronic kidney disease, or unspecified chronic kidney disease; N18.3 Chronic kidney disease, stage 3 (moderate)
CPT/HCPCS: 36415; 80048; 82043; 82570; 83036

== ENCOUNTER 2020-05-26 09:24 | Outpatient (CLI) | payer MEDICARE, OTHER ==
[2020-05-26 11:48] LABS: CALCIUM 9.4 mg/dL (8.5-10.3); CREATININE 1.8 mg/dL (0.6-1.2)
== END 2020-05-26 09:25 | disposition home or self-care (01) ==
LOC: LAB.WCP 09:24
PROVIDERS: ATTEND Internal Medicine Nephrology
DX: N18.3 Chronic kidney disease, stage 3 (moderate) (principal)
CPT/HCPCS: 36415; 80048

== ENCOUNTER 2020-07-02 10:01 | Outpatient (CLI) | payer MEDICARE, OTHER ==
[2020-07-02 11:50] LABS: BASOPHILS # (AUTO) 0.1 10^3/uL (0.0-0.1); BASOPHILS % (AUTO) 0.6 %; EOSINOPHILS # (AUTO) 0.2 10^3/uL (0.0-0.7); EOSINOPHILS % (AUTO) 1.8 %; HGB - HEMOGLOBIN 12.5 g/dL (14.0-18.0); LYMPHOCYTES # (AUTO) 1.9 10^3/uL (1.5-3.5); LYMPHOCYTES % (AUTO) 21.2 %; MEAN CORPUSCULAR HEMOGLOBIN 29.6 pg (27.0-31.0); MEAN CORPUSCULAR VOLUME 92.4 fL (80.0-94.0); MEAN PLATELET VOLUME 10.1 fL (7.4-11.4); MONOCYTES # (AUTO) 0.6 10^3/uL (0.0-1.0); MONOCYTES % (AUTO) 6.9 %; NEUTROPHILS % (AUTO) 68.9 %; PLT - PLATELET COUNT 241 10^3/uL (130-450); RED BLOOD COUNT 4.23 10^6/uL (4.70-6.10); RED CELL DISTRIBUTION WIDTH 12.8 % (12.0-15.0); WHITE BLOOD COUNT 8.7 x10^3/uL (4.8-10.8)
[2020-07-02 12:15] LABS: CREATININE,URINE 67.5 mg/dL; MICROALBUM/CREATININE RATIO,UR 13.3 ug/mg (<30.0); MICROALBUMIN,URINE 0.9 mg/dL (0-300.0)
[2020-07-02 12:33] LABS: ALBUMIN/GLOBULIN RATIO 1.3 (1.0-2.2); ALKALINE PHOSPHATASE 53 IU/L (42-121); ALT ALANINE AMINOTRANSFERASE 13 IU/L (10-60); AST ASPARTATE AMINOTRANSFERASE 14 IU/L (10-42); BILIRUBIN,TOTAL 1.5 mg/dL (0.2-1.0); BUN - BLOOD UREA NITROGEN 40 mg/dL (6-20); CALCIUM 8.8 mg/dL (8.5-10.3); CARBON DIOXIDE - CO2 26 mmol/L (21-32); CHLORIDE 100 mmol/L (101-111); CHOL/HDL RATIO 6.9 (<5.0); CHOLESTEROL 208 mg/dL; GLUCOSE 147 mg/dL (70-100); HDL CHOLESTEROL 30 mg/dL; LDL CHOLESTEROL,CALCULATED 108 mg/dL; LDL/HDL RATIO 3.6 (<3.6); SODIUM 135 mmol/L (135-145); TOTAL PROTEIN 7.1 g/dL (6.7-8.2); VLDL CHOLESTEROL 70 mg/dL
[2020-07-02 12:55] LABS: HEMOGLOBIN A1c% 6.9 % (4.27-6.07)
== END 2020-07-02 23:59 | disposition home or self-care (01) ==
LOC: LAB.WCP 10:01
PROVIDERS: ATTEND Family Medicine
DX: N18.30 Chronic kidney disease, stage 3 unspecified (principal); E78.5 Hyperlipidemia, unspecified; R73.09 Other abnormal glucose
CPT/HCPCS: 36415; 80053; 80061; 82043; 82570; 83036; 83721; 84443; 85025